=== PATIENT | male | born 1970 | race Caucasian/White ===

== ENCOUNTER 2021-07-24 10:39 | Emergency (ER) | payer BC ==
[2021-07-24 11:35] LABS: HEMOGLOBIN 15.3 gm/dl (14.0-17.5); RED BLOOD COUNT 4.87 M/UL (4.20-5.50); WHITE BLOOD COUNT 5.6 K/UL (4.5-11.0)
[2021-07-24 12:10] LABS: BUN/CREATININE RATIO 17 (0-10)
[2021-07-24] MEDS ORDERED: ASPIRIN CHEWABL81 MG PO (15:08)
== END 2021-07-24 15:17 | disposition home or self-care (01) ==
LOC: ER1 10:39
PROVIDERS: Nurse Practitioner
DX: R20.2 Paresthesia of skin (principal); Z20.822 Contact with and (suspected) exposure to COVID-19
CPT/HCPCS: 70450; 70498; 80053; 81001; 82550; 82553; 82962; 83874; 84484; 85025; 85610; 93005; 99284; J7030; Q9967; U0002